=== PATIENT | male | born 1995 | race Two or more races ===

== ENCOUNTER 2021-11-14 08:27 | Outpatient (CLI) | payer OTHER ==
[2021-11-14] MEDS ORDERED: Iopamidol 300 61% 100 ML VIAL FS ONE (10:02)
== END 2021-11-14 08:28 | disposition home or self-care (01) ==
LOC: CSHCT 08:27
PROVIDERS: ATTEND Student in an Organized Health Care Education/Training Program
DX: R59.1 Generalized enlarged lymph nodes (principal)
CPT/HCPCS: 70491; Q9967